=== PATIENT | male | born 1970 | race Caucasian/White ===

== ENCOUNTER 2017-09-27 13:01 | Inpatient (IN) | payer MEDICAID, OTHER ==
[2017-09-27] MEDS ORDERED: NS 1,000 ML IV ONE (13:09)
[2017-09-27] MEDS ORDERED: ONDANSETRON 4 MG/2 ML VIAL IVP ONE (13:09)
[2017-09-27] MEDS ORDERED: HYDROmorphONE/DILAUDID 2 MG/ML INJ IVP ONE (13:09)
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
[2017-09-27] MEDS ORDERED: IOPAMIDOL (ISOVUE-300) 100 ML BTL ONE (13:14)
[2017-09-27 13:28] LABS: PLATELET COUNT 215 10^3/uL (150-400)
[2017-09-27 13:35] LABS: INR 1.04 (0.83-1.16); PROTIME(PATIENT) 13.8 SEC (12.0-15.0)
[2017-09-27] MEDS ORDERED: KETOROLAC 30 MG/1 ML SDV IVP ONE (14:12)
[2017-09-27] MEDS ORDERED: ceFAZolin 1 GM VIAL IVP ONE (14:29)
[2017-09-27] MEDS ORDERED: CEFAZOLIN 1 GM/DEXTROSE/50 ML BAG IV ONE (14:32)
[2017-09-27] MEDS ORDERED: ONDANSETRON 4 MG/2 ML VIAL IVP PRN (14:50)
[2017-09-27] MEDS ORDERED: HYDROmorphONE/DILAUDID 1 MG/ML INJ IVP ONE (14:59)
[2017-09-27] MEDS ORDERED: LR 1,000 ML IV SCH ×2 (15:00→16:00)
[2017-09-27] MEDS ORDERED: HYDROmorphONE/DILAUDID 2 MG/ML INJ ONE (15:02)
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
[2017-09-27] MEDS ORDERED: fentaNYL 250 MCG/5 ML INJ ONE (15:58)
[2017-09-27] MEDS ORDERED: DEXAMETHASONE 4 MG/ML VIAL ONE ×2 (15:58→15:59)
[2017-09-27] MEDS ORDERED: ROCURONIUM 50 MG/5 ML VIAL ONE (15:58)
[2017-09-27] MEDS ORDERED: PROPOFOL 200 MG/20 ML VIAL ONE (15:58)
[2017-09-27] MEDS ORDERED: BUPIVACAINE/EPI 0.5% 30 ML SDV ONE (16:02)
[2017-09-27] MEDS ORDERED: MIDAZOLAM 2 MG/2 ML VIAL ONE (16:10)
[2017-09-27] MEDS ORDERED: PHENYLEPHRINE HCL 100 MCG/ML SYR ONE (16:40)
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
[2017-09-27] MEDS ORDERED: ONDANSETRON 4 MG/2 ML VIAL ONE (17:50)
[2017-09-27] MEDS ORDERED: SUGAMMADEX SODIUM 200 MG/2 ML VIAL IVP ONE (17:56)
--- NOTE | 2017-09-27 18:10 | POSTOPPROG ---
Post Op Note Date of Operation: 09/27/17 Surgeon: Jaylen Rizo Anesthesiologist: jess Anesthesia: GET(General Endotracheal) Pre-op Diagnosis: open lt clavicle fx Post-op Diagnosis: same Procedure: ORIF lt clavicle, I&D Inf/Abcess present in the surg proc area at time of surgery?: No EBL: 50-100 Complications: none
[2017-09-27] MEDS ORDERED: NALOXONE HCL 0.4 MG/ML INJ IVP PRN (18:15)
[2017-09-27] MEDS ORDERED: oxyCODONE IR 5 MG TAB PO PRN (18:15)
--- NOTE | 2017-09-27 18:44 | POSTANESTH ---
Post Anesthetic Evaluation Cardiovascular Status: Normal, Stable Respiratory Status: Similar to Pre-op Cond. Level of Consciousness/Mental Status: Can Participate in Eval Pain Control: Adequate, Prn Tx Ordered Nausea/Vomiting Control: Adequate, Prn Tx Ordered Complications Possibly Related to Anesthesia: None Noted
[2017-09-27] MEDS ORDERED: KETOROLAC 30 MG/1 ML SDV ONE (18:45)
[2017-09-27] MEDS: KETOROLAC 30 MG/1 ML SDV IVP SCH (18:46)
[2017-09-27] MEDS ORDERED: fentaNYL 100 MCG/2 ML INJ ONE (18:58)
[2017-09-27] MEDS: fentaNYL 100 MCG/2 ML INJ IVP PRN ×2 (19:00→19:07)
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
[2017-09-27] MEDS: ACETAMINOPHEN 500 MG TAB PO SCH ×2 (19:48→22:29)
[2017-09-27] MEDS: HYDROCODONE/APAP 5/325 TAB PO PRN (20:15)
[2017-09-27] MEDS: ceFAZolin 2 GM/SWFI 2 GM/20 ML SYR IVP SCH (20:38)
[2017-09-27] MEDS: LIDOCAINE 4%/MENTHOL 1% PATCH TD SCH (21:35)
[2017-09-27] MEDS: PATCH REMOVAL 1 EA PATCH TD SCH (21:35)
[2017-09-27] MEDS ORDERED: ceFAZolin 2 GM/DEXTROSE 100 ML IV SCH (22:00)
[2017-09-28] MEDS: diphenhydrAMINE 50 MG CAP PO PRN (00:21)
[2017-09-28] MEDS: KETOROLAC 30 MG/1 ML SDV IVP SCH ×5 (00:21→23:49)
[2017-09-28] MEDS: OXYCODONE/APAP 5/325 TAB PO PRN (00:43)
[2017-09-28] MEDS: CYCLOBENZAPRINE 10 MG TAB PO PRN ×4 (00:43→19:56)
[2017-09-28] MEDS: ceFAZolin 2 GM/SWFI 2 GM/20 ML SYR IVP SCH (05:02)
[2017-09-28 05:08] LABS: PLATELET COUNT 161 10^3/uL (150-400)
--- NOTE | 2017-09-28 06:53 | NEUSURGPN ---
Assessment/Plan: Assessment: 47 yo male that is admitted to trauma with multiple injuries. We were consulted for a T2 fracture of the facet as well as a T5 TP fracture Plan: -images reviewed again with Dr Milton and no bracing or surgery recommended -pt is not tender to C/T/L spine -PT/OT pending -Pneumo/rib fractures/clavicle fracture-defer to Ortho and Trauma -continue with current pain management -neuro intact -GCS 15 -NS to sign off at this time-follow up in 2-[address] Bai team -call with any changes or issues Subjective: Awake and alert. NAD. No new complaints or events. No f/c/n/v/d. Objective: AAO x 3, PERRLA/EOMI no droop CN 2-12 grossly intact +lt touch 5/5 BUE/BLE = except left delt not tested due to nature of clavicle injury +cms/nv intact x 4 Neuro Check Frequency: per routine Urinary Catheter in Place: No - Physician Discussed Patient with Dr.: Milton Patient Seen by Dr.: Milton Neurosurgery Physical Exam - Vitals, I&O, Labs I and O 09/27/17 09/28/17 09/29/17 05:59 05:59 05:59 Intake Total 4000 Output Total 2550 Balance 1450 Weight 75.1 kg Intake: Oral (ml) 1700 IV Intake (ml) 1060 IV Infused (ml) 1240 Lr 1,000 ml @ 100 mls/hr 200 IV CONT RICCO Rx#: [id number] ceFAZolin 1 GM/DEXTROSE 40 50 ml @ 200 mls/hr IV EDNOW ONE Rx#:[id number] Output: Urine (ml) 2450 Urinal 1850 Estimated Blood Loss (ml) 100 Other: Intake Quantity Yes Sufficient Vital Signs Temp Pulse Resp BP Pulse Ox 37.1 C 84 11 L 96/61 L 98 09/28/17 04:00 09/28/17 04:00 09/28/17 04:00 09/28/17 04:00 09/28/17 04:00 Laboratory Results 09/28/17 04:50 09/28/17 04:50 ICD10 Worksheet Patient Problems: Problems Problem Status Onset Clavicle fracture, shaft Acute Fracture of lamina of thoracic vertebra Acute Ribs, multiple fractures Acute Scapular fracture Acute Traumatic hemothorax Acute
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
[2017-09-28] MEDS: ACETAMINOPHEN 500 MG TAB PO SCH ×3 (08:35→23:53)
--- NOTE | 2017-09-28 09:51 | TRAUMAPNT ---
Trauma Tertiary Progress Note New Findings: C/o left wrist and elbow discomfort. Left wrist evaluated by and felt to not be fractured. Left elbow is also unremarkable to my exam. Assessment/Plan: POD#1 PAD#1 09/28/2017 Assessment: Pain control - Patient consumed edible last PM. Those have been removed from the room and are stored by security. Pain control rated as good. Rib fractures - Post Op CXR unremarkable. AM CXR pending. Scapular Fracture - sling helpful T2 Facet Fracture - Stable per Dr. Milton Plan: Mobilize today and consider possible discharge tomorrow Subjective: C/o of left wrist and elbow ache Objective: Vital Signs Temp Pulse Resp BP Pulse Ox 37.1 C 93 15 116/77 92 09/28/17 08:00 09/28/17 08:00 09/28/17 08:00 09/28/17 08:00 09/28/17 08:00 Laboratory Results 09/28/17 04:50 09/28/17 04:50 09/27/17 09/28/17 09/29/17 05:59 05:59 05:59 Intake Total 4000 Output Total 2550 Balance 1450 PT 13.8 SEC (12.0-15.0) 09/27/17 13:10 INR 1.04 (0.83-1.16) 09/27/17 13:10 Physical Exam - Physical Exam General Appearance: WD/WN, alert, mild distress EENT: PERRL/EOMI, normal ENT inspection Neck: non-tender, full range of motion, supple, normal inspection Respiratory: normal breath sounds, other (IS only to 1500) Cardiac/Chest: regular rate, rhythm Abdomen: normal bowel sounds, non-tender, soft Male Genitalia: deferred Rectal: deferred Back: Normal inspection Skin: normal color, warm/dry Neuro/Psych: no motor/sensory deficits, alert, normal mood/affect, oriented x 3 Time Spent w/Patient (minutes): 25
[2017-09-28] MEDS: HYDROCODONE/APAP 5/325 TAB PO PRN ×3 (10:23→21:20)
[2017-09-28] MEDS: LIDOCAINE 4%/MENTHOL 1% PATCH TD SCH (10:23)
[2017-09-28] MEDS: FLUTICASONE NASAL 120 SPRAYS/16 GM MDI EACHNARE SCH (10:25)
--- NOTE | 2017-09-28 11:11 | SOAPPROG ---
SOAP Progress Note Assessment/Plan: Assessment: Plan: 1. L wrist - possible sprain, no swelling, no evidence of fracture, will monitor 2. L clavicle - stay in sling, may remove for getting dressed, light motion OK, keep elbow below shoulder level 3. ortho will follow 09/28/17 11:10 Subjective: Patient doing well, pain controlled. Denies any neurologic sx. Some complaint of vague L wrist pain. Objective: Vital Signs Temp Pulse Resp BP Pulse Ox 37.1 C 93 15 116/77 92 09/28/17 08:00 09/28/17 08:00 09/28/17 08:00 09/28/17 08:00 09/28/17 08:00 Laboratory Results 09/28/17 04:50 09/28/17 04:50 09/27/17 09/28/17 09/29/17 05:59 05:59 05:59 Intake Total 4000 Output Total 2550 Balance 1450 PT 13.8 SEC (12.0-15.0) 09/27/17 13:10 INR 1.04 (0.83-1.16) 09/27/17 13:10 L clavicle - incision healing, no bleeding, NVI L arm, ROM deferred L wrist - full AROM, minimal tender at distal ulna, no radius pain, no scaphoid pain, moving fingers well, NVI - Time Spent With Patient Time Spent With Patient: 15 - Pending Discharge Pending Discharge Within 24 Hours: No Pending Discharge Within 48 Hours: No ICD10 Worksheet Patient Problems: Problems Problem Status Onset Clavicle fracture, shaft Acute Fracture of lamina of thoracic vertebra Acute Ribs, multiple fractures Acute Scapular fracture Acute Traumatic hemothorax Acute
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
[2017-09-28] MEDS: MULTIVITAMINS W-MINERALS 1 EACH TAB PO SCH (16:04)
[2017-09-29] MEDS: PATCH REMOVAL 1 EA PATCH TD SCH (00:24)
[2017-09-29] MEDS: KETOROLAC 30 MG/1 ML SDV IVP SCH ×4 (06:20→23:51)
[2017-09-29] MEDS ORDERED: MAGNESIUM HYDROXIDE 30 ML UDCUP PO PRN (08:56)
[2017-09-29] MEDS ORDERED: BISACODYL 10 MG SUPP PR PRN (08:56)
[2017-09-29] MEDS ORDERED: LACTULOSE 20 GM/30 ML UDCUP PO PRN (08:56)
--- NOTE | 2017-09-29 08:56 | TRAUMAPN ---
Trauma Progress Note Assessment/Plan: 2 days post injury/remains hemodynamically stable s/p ORIF left clavicle fracture T2 facet fx/T7 TP fx multiple left rib fx. Transfer to med surg/PT/OT restart probiotics/bowel protocol continue pulmonary exercises, increase activity anticipate discharge 24-48 hours Subjective: resting comfortably/reports obstipation pain with coughing Objective: Vital Signs Temp Pulse Resp BP Pulse Ox 36.9 C 92 12 102/62 100 09/28/17 23:45 09/28/17 16:00 09/28/17 23:45 09/28/17 23:45 09/28/17 23:45 Laboratory Results 09/28/17 04:50 09/28/17 04:50 09/28/17 09/29/17 09/30/17 05:59 05:59 05:59 Intake Total 4000 1700 Output Total 2550 600 Balance 1450 1700 -600 PT 13.8 SEC (12.0-15.0) 09/27/17 13:10 INR 1.04 (0.83-1.16) 09/27/17 13:10 - C-Spine Clearance Cervical Spine Cleared: Yes Provider who Cleared Cervical Spine: Luis Physical Exam - Physical Exam General Appearance: alert, mild distress Neck: non-tender Respiratory: lungs clear, decreased breath sounds Cardiac/Chest: regular rate, rhythm Abdomen: normal bowel sounds, non-tender, soft, distended Male Genitalia: deferred Rectal: deferred Skin: normal color, warm/dry Extremities: other (Left arm in sling/distal NV intact) Neuro/Psych: alert, normal mood/affect, oriented x 3 Time Spent w/Patient (minutes): 10
[2017-09-29] MEDS: MULTIVITAMINS W-MINERALS 1 EACH TAB PO SCH (09:07)
[2017-09-29] MEDS: HYDROCODONE/APAP 5/325 TAB PO PRN ×3 (09:07→21:35)
[2017-09-29] MEDS: LIDOCAINE 4%/MENTHOL 1% PATCH TD SCH (09:08)
[2017-09-29] MEDS: ACETAMINOPHEN 500 MG TAB PO SCH ×3 (09:31→23:51)
[2017-09-29] MEDS: SENNOSIDES/DOCUSATE SODIUM TAB PO SCH ×2 (10:06→19:38)
[2017-09-29] MEDS: FLUTICASONE NASAL 120 SPRAYS/16 GM MDI EACHNARE SCH (10:19)
[2017-09-29] MEDS ORDERED: ACIDOPHILUS PO SCH (12:00)
[2017-09-29] MEDS ORDERED: BULGARICUS PO SCH (12:00)
--- NOTE | 2017-09-29 15:06 | SOAPPROG ---
SOAP Progress Note Assessment/Plan: Assessment: Plan: 1. L wrist - possible sprain, no swelling, no evidence of fracture, will monitor 2. L clavicle - stay in sling, may remove for getting dressed, light motion OK, keep elbow below shoulder level 3. ortho will follow 09/28/17 11:10 Subjective: Pain improved, doing well. Objective: Vital Signs Temp Pulse Resp BP Pulse Ox 36.9 C 88 16 106/67 88 L 09/28/17 23:45 09/29/17 11:06 09/29/17 08:59 09/29/17 08:59 09/29/17 11:06 Laboratory Results 09/28/17 04:50 09/28/17 04:50 09/28/17 09/29/17 09/30/17 05:59 05:59 05:59 Intake Total 4000 1700 Output Total 2550 600 Balance 1450 1700 -600 PT 13.8 SEC (12.0-15.0) 09/27/17 13:10 INR 1.04 (0.83-1.16) 09/27/17 13:10 wound clean/dry, nvi - Time Spent With Patient Time Spent With Patient: 5 - Pending Discharge Pending Discharge Within 24 Hours: No Pending Discharge Within 48 Hours: No ICD10 Worksheet Patient Problems: Problems Problem Status Onset Clavicle fracture, shaft Acute Fracture of lamina of thoracic vertebra Acute Ribs, multiple fractures Acute Scapular fracture Acute Traumatic hemothorax Acute
[2017-09-29] MEDS: POLYETHYLENE GLYCOL 3350 17 GM PKT PO PRN (15:38)
[2017-09-29] MEDS: [UNRECOGNIZED DRUG - OTHER] PO SCH (22:58)
[2017-09-30] MEDS: PATCH REMOVAL 1 EA PATCH TD SCH ×2 (04:17→21:46)
[2017-09-30] MEDS: LIDOCAINE 4%/MENTHOL 1% PATCH TD SCH (08:22)
[2017-09-30] MEDS: ACETAMINOPHEN 500 MG TAB PO SCH ×3 (08:24→16:02)
[2017-09-30] MEDS: KETOROLAC 30 MG/1 ML SDV IVP SCH ×3 (08:25→17:53)
[2017-09-30] MEDS: HYDROCODONE/APAP 5/325 TAB PO PRN ×3 (08:26→21:39)
[2017-09-30] MEDS: FLUTICASONE NASAL 120 SPRAYS/16 GM MDI EACHNARE SCH (08:26)
[2017-09-30] MEDS: MULTIVITAMINS W-MINERALS 1 EACH TAB PO SCH (08:26)
[2017-09-30] MEDS: SENNOSIDES/DOCUSATE SODIUM TAB PO SCH ×2 (08:26→19:46)
--- NOTE | 2017-09-30 09:33 | TRAUMAPN ---
Trauma Progress Note Assessment/Plan: POD#1 PAD#1 09/28/2017 Assessment: Pain control - Patient consumed edible last PM. Those have been removed from the room and are stored by security. Pain control rated as good. Rib fractures - Post Op CXR unremarkable. AM CXR pending. Scapular Fracture - sling helpful T2 Facet Fracture - Stable per Dr. Milton Plan: Mobilize today and consider possible discharge tomorrow POD#3 PAD#3 09/30/2017 Pain control - good Respiratory - SATs good, Lungs clear, still has E to A changes (less) sebastian left lower lung coronel, IS to 2000 Scapular fracture - more pain which he feels is do to more use. HCT dropped as expected Plan: Continue to mobilize F/u HCT OT to evaluate today Will get F/U CXR Subjective: No stool or flatus Objective: Vital Signs Temp Pulse Resp BP Pulse Ox 37.0 C 86 12 90/57 L 90 L 09/29/17 23:52 09/30/17 04:13 09/30/17 04:13 09/30/17 04:13 09/30/17 04:13 Laboratory Results 09/28/17 04:50 09/28/17 04:50 09/29/17 09/30/17 10/01/17 05:59 05:59 05:59 Intake Total 1700 2500 Output Total 1300 Balance 1700 1200 PT 13.8 SEC (12.0-15.0) 09/27/17 13:10 INR 1.04 (0.83-1.16) 09/27/17 13:10 - C-Spine Clearance Cervical Spine Cleared: Yes Provider who Cleared Cervical Spine: Luis Physical Exam - Physical Exam General Appearance: WD/WN, alert, mild distress Neck: non-tender, full range of motion, supple Respiratory: chest non-tender, lungs clear, normal breath sounds, other (E to A changes persist in left base but have diminished) Cardiac/Chest: regular rate, rhythm Abdomen: normal bowel sounds, non-tender, soft Rectal: deferred Back: Normal inspection Skin: normal color, warm/dry Extremities: normal range of motion, other (left arm in sling for comfort) Neuro/Psych: no motor/sensory deficits, alert, normal mood/affect, oriented x 3 Time Spent w/Patient (minutes): 25
[2017-09-30 11:36] LABS: PLATELET COUNT 151 10^3/uL (150-400)
--- NOTE | 2017-09-30 13:03 | ASMTCMCOM ---
CM Note CM Note Notes: OT states no OT follow up needs and PT states patient can do any rehab on an outpatient basis. Patient will most likely D/C independent. CM available if D/C needs arise. Date Signed: 09/30/2017 01:02 PM Electronically Signed By:Yamilka Hartman LCSW
[2017-09-30] MEDS: POLYETHYLENE GLYCOL 3350 17 GM PKT PO PRN (19:53)
[2017-09-30] MEDS: [UNRECOGNIZED DRUG - OTHER] PO SCH (19:53)
[2017-09-30] MEDS: diphenhydrAMINE 50 MG CAP PO PRN (21:40)
[2017-10-01] MEDS: HYDROCODONE/APAP 5/325 TAB PO PRN (00:29)
[2017-10-01] MEDS: KETOROLAC 30 MG/1 ML SDV IVP SCH ×3 (00:29→12:04)
[2017-10-01] MEDS: ACETAMINOPHEN 500 MG TAB PO SCH ×2 (00:39→07:40)
[2017-10-01] MEDS: OXYCODONE/APAP 5/325 TAB PO PRN ×4 (03:07→16:43)
[2017-10-01] MEDS: MULTIVITAMINS W-MINERALS 1 EACH TAB PO SCH (09:04)
[2017-10-01] MEDS: FLUTICASONE NASAL 120 SPRAYS/16 GM MDI EACHNARE SCH (09:04)
[2017-10-01] MEDS: SENNOSIDES/DOCUSATE SODIUM TAB PO SCH (09:04)
[2017-10-01] MEDS: LIDOCAINE 4%/MENTHOL 1% PATCH TD SCH (09:06)
--- NOTE | 2017-10-01 10:15 | TRAUMAPNT ---
Trauma Tertiary Progress Note Assessment/Plan: POD#1 PAD#1 09/28/2017 Assessment: Pain control - Patient consumed edible last PM. Those have been removed from the room and are stored by security. Pain control rated as good. Rib fractures - Post Op CXR unremarkable. AM CXR pending. Scapular Fracture - sling helpful T2 Facet Fracture - Stable per Dr. Milton Plan: Mobilize today and consider possible discharge tomorrow POD#3 PAD#3 09/30/2017 Pain control - good Respiratory - SATs good, Lungs clear, still has E to A changes (less) sebastian left lower lung coronel, IS to 2000 Scapular fracture - more pain which he feels is do to more use. HCT dropped as expected Plan: Continue to mobilize F/u HCT OT to evaluate today Will get F/U CXR 10/01/2017 POD#4 & PAD#4 Assessment: Pain control good - Respiratory - SATs good, Lungs clear, E to A changes have resolved, CXR yesterday shows left pleural fluid collection HCT stable Plan: F/u CXR with decub to assess the need for thoracentesis Subjective: I'm feeling better Objective: Vital Signs Temp Pulse Resp BP Pulse Ox 36.8 C 78 20 106/65 92 10/01/17 07:43 10/01/17 07:43 10/01/17 07:43 10/01/17 07:43 10/01/17 07:43 Laboratory Results 09/30/17 11:30 09/28/17 04:50 09/30/17 10/01/17 10/02/17 05:59 05:59 05:59 Intake Total 2500 1000 950 Output Total 1300 475 400 Balance 1200 525 550 PT 13.8 SEC (12.0-15.0) 09/27/17 13:10 INR 1.04 (0.83-1.16) 09/27/17 13:10 - C-Spine Clearance Cervical Spine Cleared: Yes Provider who Cleared Cervical Spine: Luis Physical Exam - Physical Exam General Appearance: WD/WN, alert, mild distress Neck: full range of motion, supple Respiratory: lungs clear, normal breath sounds, other (No E to A changes today) Cardiac/Chest: regular rate, rhythm Abdomen: normal bowel sounds, non-tender, soft, other (Had a bowel movement) Male Genitalia: deferred Rectal: deferred Back: Normal inspection Skin: normal color, warm/dry Neuro/Psych: no motor/sensory deficits, alert, normal mood/affect, oriented x 3 Time Spent w/Patient (minutes): 35
[2017-10-01 16:00] VITALS: BP 105/61
--- NOTE | 2017-10-01 17:31 | GDS ---
[f rep st] DISCHARGE SUMMARY DISCHARGE DIAGNOSES: 1. Snowboard crash into a tree. 2. Left midshaft clavicular fracture. 3. Fractures of left ribs 1 through 8 with two them in 2 places, left pulmonary contusion, small left hemo/hydrothorax, small pneumothorax (resolved) , left scapular fracture, fracture transverse process of T5, fracture posterior element of T2 with 1 mm fragment in the canal. Condition is dramatically improved. Surgery performed ORIF left clavicle by Dr. Jaylen Rizo. Consultations provided by Dr. Simon Milton, neurosurgery. DIET: There are no diet restrictions at discharge, just the suggestion that he avoid constipating foods, such as bananas, rice, applesauce, and cheese. Texture is unremarkable. For pain control upon discharge, he will be taking Percocet 5/325, Toradol 10 mg p.o. q.6h (#12). He will take Flexeril 10 mg every 8 hours as needed for spasm. He will use a lidocaine patch on his left chest. Continue his multivitamins. He will continue Flonase nasal spray 1 spray daily. He is not to take his oral supplements, aspirin or routine Tylenol because of the Tylenol already present in the Percocet. ACTIVITY: He has no restrictions of movement of his cervical, thoracic, or lumbar spine. If he notes any difficulties or deficits, he is to report that to neurosurgery. He is to wear a sling for his left scapular fracture. He is to follow up with Dr. Simon Milton and staff and neurosurgical staff in 2 weeks. He is to follow up with Dr. Jaylen Rizo in 2 weeks, and he will follow up with Drs. Ra Marina/Eboni Peter/David Perkins in approximately 2 weeks from a chest trauma standpoint. HOSPITAL COURSE: The patient was admitted and taken to the operating room where there was an ORIF of his compound left clavicular fracture. Dr. Simon Milton was consulted because of the small posterior element chip fracture in the canal. He feels this is structurally stable and represents a noncritical finding. His scapular fracture, left chest fracture, and transverse process fractures were all observed. He did not need a chest tube as his tiny pneumothorax resolved. The hemo hydrothorax is stabilized and resolving. His hematocrit dropped to 34 and that is stable. His pain is well controlled at this point. He has been moving his bowels and eating well. I feel he is set for discharge at this time. Note is made his incision is clean and dry. /[id number]/MODL MTDD
== END 2017-10-01 17:57 | disposition home or self-care (01) | DRG 515 ==
LOC: EDUNIT# → EDBD → OBSVTOIN 14:37 → F2N 15:31 → F3E 09-30 18:02
PROVIDERS: ADMIT Surgery; ATTEND Surgery
PROC: 0PSB04Z Reposition Left Clavicle with Internal Fixation Device, Open Approach (ICD-10-PCS; principal; 2017-09-27 16:00)
DX: S42.022B Displaced fracture of shaft of left clavicle, initial encounter for open fracture (principal); S22.42XA Multiple fractures of ribs, left side, initial encounter for closed fracture; S32.029A Unspecified fracture of second lumbar vertebra, initial encounter for closed fracture; S22.059A Unspecified fracture of T5-T6 vertebra, initial encounter for closed fracture; S42.102A Fracture of unspecified part of scapula, left shoulder, initial encounter for closed fracture; S27.2XXA Traumatic hemopneumothorax, initial encounter; S63.502A Unspecified sprain of left wrist, initial encounter; S06.0X9A Concussion with loss of consciousness of unspecified duration, initial encounter; R40.2412 Glasgow coma scale score 13-15, at arrival to emergency department; Z87.820 Personal history of traumatic brain injury; S27.329A Contusion of lung, unspecified, initial encounter; V00.318A Other snowboard accident, initial encounter; Y92.838 Other recreation area as the place of occurrence of the external cause; Y93.23 Activity, snow (alpine) (downhill) skiing, snowboarding, sledding, tobogganing and snow tubing
CPT/HCPCS: 82947-QW; 92523-GN; 96365; 97162-GP; 97166-GO; 97535-GO; C1713; G0480; J0690; J1100; J1170; J1885; J2250; J2370; J2405; J2704; J3010; Q9967

== ENCOUNTER → 2017-11-22 | Outpatient (CLI) | payer MEDICAID | LOC: FIMAGING 16:09 | PROVIDERS: ATTEND Orthopaedic Surgery | DX: S42.002D Fracture of unspecified part of left clavicle, subsequent encounter for fracture with routine healing (principal) ==